=== PATIENT | male | born 1970 | race Caucasian/White ===

== ENCOUNTER 2020-06-07 07:43 | Emergency (ER) | payer OTHER | END 2020-06-07 09:50 | disposition home or self-care (01) | LOC: EDBD 07:43 → ER1 07:43 | DX: S13.4XXA Sprain of ligaments of cervical spine, initial encounter (principal); I10 Essential (primary) hypertension; V49.40XA Driver injured in collision with unspecified motor vehicles in traffic accident, initial encounter; Y92.410 Unspecified street and highway as the place of occurrence of the external cause | CPT/HCPCS: 71046; 72125; 93005; 99284 ==